=== PATIENT | male | born 1940 | race Caucasian/White ===

== ENCOUNTER 2018-02-10 11:37 | Day surgery (SDC) | payer MEDICARE ==
[~2018-02-10 11:37] MED LIST: ACETAMINOPHEN 1,000 MG/100 ML BTL IV ONE; CLINDAMYCIN 600MG/50ML PREMIX 600 MG/50 ML BAG IVPB ONE
[2018-02-10] MEDS ORDERED: PROPOFOL 10 MG/ML VIAL IV ONE (11:38)
[2018-02-10] MEDS ORDERED: **ER** KETAMINE HCL 500MG/10ML VIAL IV ONE (11:38)
[2018-02-10 11:49] LABS: BASO % 0.4 % (0-6); EOS % 4.3 % (0-6); GRAN % 57.3 % (47-80); HEMATOCRIT 44.7 % (42.0-52.0); HEMOGLOBIN 14.3 gm/dl (14.0-18.0); LYMPH % 26.6 % (16-45); MEAN CELL VOLUME 95.7 fl (81-97); MEAN CORPUSCULAR HEMOGLOBIN 30.6 pg (27-33); MEAN PLATELET VOLUME 10.5 fl (7.4-10.4); MONO % 11.4 % (0-9); PLATELET COUNT 223 K/uL (130-400); RED BLOOD COUNT 4.67 M/uL (4.40-5.70); RED CELL DISTRIBUTION WIDTH 14.5 % (11.5-14.5); WHITE BLOOD COUNT W/O DIFF 9.2 K/uL (4.2-12.2)
[2018-02-10 12:06] LABS: BLOOD UREA NITROGEN 19 mg/dL (8-23); EST GLOMERULAR FILTRATION RATE > 60 mL/min; GLUCOSE,RANDOM 139 mg/dL (74-109)
[2018-02-10] MEDS ORDERED: SODIUM CHLORIDE 0.9% IV ONE (13:15)
[2018-02-10] MEDS ORDERED: GENTAMICIN SULFATE IV ONE (13:15)
--- NOTE | 2018-02-11 09:41 | Operative Note ---
DATE OF SURGERY: 02/10/2018 PREOPERATIVE DIAGNOSIS: BPH with elevated PSA. POSTOPERATIVE DIAGNOSIS: BPH with elevated PSA. OPERATION: Cystoscopy with transrectal ultrasound-guided prostate biopsies. Anesthesia: Sedation. Surgeon: Vadim Feliz MD Retail Maintenance Technician: None. PROCEDURE: Preop informed consent was obtained. Antibiotics were given. Sedation was administered. The patient was brought to the operating room, kept supine, and the genitalia were prepped and draped sterilely. Timeout was performed. Further anesthesia was administered. Flexible cystoscopy was performed. The urethra appears unremarkable. The prostate shows quite significant lateral lobe prostatic obstruction. The bladder was then entered and inspected systematically. There is [id number] bladder trabeculation seen but no mucosal tumor or abnormality is noted. The scope was then withdrawn. The patient was carefully placed in left decubitus position. Transrectal ultrasound imaging was performed, and prostate volume is measured at 90 mL. Twelve prostate biopsies were then taken transrectally sampling the base, mid, and apex of the gland both medially and laterally. The probe was then removed from the rectum. Digital pressure was placed on the prostate. There was minimal bleeding at the end of the procedure. The patient was awakened and transferred to recovery in stable condition. PLAN: The patient will be following up in the [facility] in the next few weeks to discuss these results. CC: DARIEL STEPHEN MD, FACP [facility]
== END 2018-02-10 14:50 | disposition home or self-care (01) ==
LOC: SUR 11:37
PROVIDERS: ATTEND Urology
DX: N40.0 Benign prostatic hyperplasia without lower urinary tract symptoms (principal); R97.20 Elevated prostate specific antigen [PSA]; C61 Malignant neoplasm of prostate; I10 Essential (primary) hypertension; Z79.01 Long term (current) use of anticoagulants; E78.00 Pure hypercholesterolemia, unspecified; E11.9 Type 2 diabetes mellitus without complications; I25.10 Atherosclerotic heart disease of native coronary artery without angina pectoris; Z95.5 Presence of coronary angioplasty implant and graft; D86.9 Sarcoidosis, unspecified; G62.9 Polyneuropathy, unspecified; M10.9 Gout, unspecified
CPT/HCPCS: 36416; 55700; 76942; 80048; 82948; 85025; J1580

== ENCOUNTER 2019-03-26 12:07 | Day surgery (SDC) | payer MEDICARE ==
[~2019-03-26 12:07] MED LIST changes: -ACETAMINOPHEN 1,000 MG/100 ML BTL IV ONE
[2019-03-26] MEDS ORDERED: PROPOFOL 10 MG/ML VIAL IV ONE (12:08)
[2019-03-26] MEDS ORDERED: FENTANYL PF 100MCG/2ML VIAL IV ONE (12:08)
[2019-03-26] MEDS ORDERED: LIDOCAINE 2% MDV (20MG/ML) 20ML VIAL IV ONE (12:08)
[2019-03-26] MEDS ORDERED: RINGERS SOLUTION,LACTATED 1,000 ML IV ONE ×2 (12:55→15:16)
[2019-03-26] MEDS ORDERED: GENTAMICIN SULFATE 120 MG in 0.9 % SODIUM CHLORIDE 100ML 100 ML IV ONE (15:30)
== END 2019-03-26 16:00 | disposition home or self-care (01) ==
LOC: SUR 12:07
PROVIDERS: ATTEND Urology
DX: C61 Malignant neoplasm of prostate (principal); D86.9 Sarcoidosis, unspecified; I10 Essential (primary) hypertension; E78.00 Pure hypercholesterolemia, unspecified; E11.9 Type 2 diabetes mellitus without complications; K21.9 Gastro-esophageal reflux disease without esophagitis; Z79.01 Long term (current) use of anticoagulants; M10.9 Gout, unspecified; H40.9 Unspecified glaucoma; G62.9 Polyneuropathy, unspecified; Z95.5 Presence of coronary angioplasty implant and graft
CPT/HCPCS: 76872; 00910; 36416; 82948; 55700; 76942; J3010; J1580; J7120